=== PATIENT | female | born 1975 | race Caucasian/White ===

== ENCOUNTER 2017-07-18 14:12 | Emergency (ER) | payer MEDICAID ==
[2017-07-18 14:38] VITALS: BP 115/81; TEMP 98.5; O2SAT 98
--- NOTE | 2017-07-18 14:49 | ED.PDOC ---
History of Present Illness - General Chief Complaint: Problem Stated Complaint: Possible UTI Time Seen by Provider: 07/18/17 14:27 Source: patient, RN notes reviewed, Vital Signs reviewed Exam Limitations: no limitations - History of Present Illness Initial Comments: Patient presents to ER with c/o cloudy urine, urinary frequency and mild L flank pain. Feels similar to prior UTI's. + Urgency. + strong odor in AM. No vaginal discharge. Timing/Duration: yesterday Quality: moderate, stabbing Onset Location: suprapubic Radiation: left flank Activites at Onset: none Improving Factors: nothing Worsening Factors: nothing Associated Symptoms: abdominal pain, dysuria, urinary frequency Allergies/Adverse Reactions: Allergies Aspirin [From Talwin Compound] Adverse Reaction (Verified 07/18/17 14:38) Other Causes heart palpitations Pentazocine [From Talwin Compound] Adverse Reaction (Verified 07/18/17 14:38) Other Causes heart palpitations Home Medications: Ambulatory Orders Nitrofurantoin Monohydrate Mac [Macrobid] 100 mg PO BID #20 cap 07/18/17 Review of Systems - Review of Systems Constitutional: States: no symptoms reported Respiratory: States: no symptoms reported Cardiology: States: no symptoms reported Gastrointestinal/Abdominal: States: see HPI, abdominal pain. Denies: diarrhea, nausea, vomiting Genitourinary: States: see HPI, dysuria, frequency, pain, other - Urgency Musculoskeletal: States: back pain - L flank Skin: States: no symptoms reported Neurological: States: no symptoms reported All other Systems: No Change from Baseline Past Medical History (General) - Patient Medical History Hx Stroke: No Hx Asthma: Yes Hx Cardiac Disorders: Yes - hypercholesterolemia Hx Congestive Heart Failure: No Hx Diabetes: No Hx Renal Disease: - hx recurrent UTI's Hx MRSA: No Surgical History: other - Vaccination History Hx Influenza Vaccination: Yes - 2017 - Social History Hx Tobacco Use: No - Female History Patient is a Female of Child Bearing Age (10 -59 yrs old): No Family Medical History - Family History Mother Living Status: Still Living Hx Family Hypertension: Yes Hx Family;Other: Osteoarthitis, fibromyalgia Physical Exam - Physical Exam General Appearance: Alert, Comfortable, No apparent distress, Well Developed, Well Groomed, Well Hydrated, Well Nourished Cardiovascular/Respiratory: regular rate, rhythm, no M/R/G, normal breath sounds , no respiratory distress Gastrointestinal/Abdominal: normal bowel sounds, soft, no organomegaly, no pulsatile mass, tenderness - Mild suprapubic & LLQ tenderness w/o guarding or rebound Back Exam: CVA tenderness (L) - mild Extremity: normal range of motion, normal inspection Neurologic: alert, normal mood/affect, oriented x 3 Skin Exam: normal color, warm/dry Comments: Vital Signs 07/18/17 14:36 Temperature 98.5 F Pulse Rate [ 79 Right Radial] Respiratory 20 Rate Blood Pressure 115/81 [Right Arm] O2 Sat by Pulse 98 Oximetry Progress - Progress Progress: 07/18/17 14:58 Discussed normal urine results. Patient is concerned that she flushed everything out by drinking so much water today. Will send urine for culture and start Macrobid. She is agreeable with plan. - Results/Orders Results/Orders: Laboratory Tests 07/18/17 14:38 Urine Color Yellow Urine Appearance Clear Urine pH 7.0 Ur Specific [place] 1.010 Urine Protein Negative Urine Glucose (UA) Negative Urine Ketones Negative Urine Blood Negative Urine Nitrite Negative Urine Bilirubin Negative Urine Urobilinogen 0.2 Ur Leukocyte Esterase Negative Urine RBC 0 Urine WBC 0 Ur Epithelial Cells 0-1 Urine Bacteria 0 Urine Culture sent Departure - Departure Clinical Impression: Dysuria, Urinary frequency Time of Disposition: 15:00 Disposition: Discharge to Home or Self Care Condition: Good Departure Forms: ED Discharge - Pt. Copy, Patient Portal Self Enrollment Instructions: DI for Urinary Tract Infection (UTI) Diet: resume usual diet Activity: increase activity as tolerated Prescriptions: Nitrofurantoin Monohydrate Mac [Macrobid] 100 mg PO BID #20 cap Home Medications: Ambulatory Orders Nitrofurantoin Monohydrate Mac [Macrobid] 100 mg PO BID #20 cap 07/18/17
== END 2017-07-18 15:08 | disposition home or self-care (01) ==
LOC: ER 14:12
DX: R35.0 Frequency of micturition (principal); R30.0 Dysuria; E78.00 Pure hypercholesterolemia, unspecified; Z87.440 Personal history of urinary (tract) infections; Z88.8 Allergy status to other drugs, medicaments and biological substances

== ENCOUNTER → 2017-12-19 | Outpatient (CLI) | payer MEDICAID ==
--- NOTE | 2017-12-20 13:43 | CT ---
EXAM DESCRIPTION: CT ABDOMEN AND PELVIS WITHOUT AND WITH CONTRAST CLINICAL HISTORY: M54.9, N20.0 dorsalia, kidney stone COMPARISON: None Available. TECHNIQUE: CT of the abdomen and pelvis are performed prior to and during IV bolus administration of standard adult dose of nonionic iodinated contrast. Oral contrast media is administered as well. FINDINGS: The lung bases are clear of infiltrate. Heart size is normal. Liver is normal in size and parenchymal appearance on precontrast images. Tiny calculus in the left kidney is seen without evidence of obstructive uropathy. This measures 1 to 2 mm. On postcontrast images, there is normal enhancement of liver, spleen, pancreas and kidneys. Normal contrast opacification of upper abdominal vessels. Spleen, pancreas, and kidneys are unremarkable with no focal lesion. There is no lymphadenopathy, inflammation, or free fluid observed. In the pelvis, precontrast images show no evidence of distal ureteral or bladder stones. Pelvic calcifications are consistent with phleboliths. No inflammation around the cecum or sigmoid colon. Appendix is not definitely identified. No pelvic mass or adenopathy. Normal appearance of the ovaries. The uterus is not seen, evidently surgically absent. Postcontrast pelvic images show normal vascular enhancement. No abnormal bladder wall enhancement. Coronal and sagittal reformatted images confirm the findings. Degenerative changes are seen at L5-S1 disc level. IMPRESSION: Tiny calculus in the left kidney without obstructive uropathy. No acute pelvic process. This exam was performed according to our departmental dose-optimization program, which includes automated exposure control, adjustment of the mA and/or kV according to patient size and/or use of iterative reconstruction technique. Electronically signed by: Jese Horan MD 12/20/2017 1:41 PM CDT
== END ==
LOC: CT 09:43
PROVIDERS: ATTEND Urology
DX: M54.9 Dorsalgia, unspecified (principal); N20.0 Calculus of kidney

== ENCOUNTER → 2018-07-16 | Outpatient (CLI) | payer OTHER ==
--- NOTE | 2018-07-17 16:19 | RAD ---
EXAM: Cervical Spine,3 Views CLINICAL HISTORY: CERVICALGIA COMPARISON STUDY: None. FINDINGS: Vertebral bodies in normal alignment. Disc spaces are preserved. No prevertebral soft tissue swelling. No fracture identified. IMPRESSION: NEGATIVE CERVICAL SPINE. ADDITIONAL IMAGING CLINICALLY INDICATED. Electronically signed by: Christopher Marie MD 07/17/2018 4:18 PM [facility]
== END ==
LOC: RAD 14:49
PROVIDERS: ATTEND Nurse Practitioner Family
DX: M54.2 Cervicalgia (principal)

== ENCOUNTER → 2019-04-22 | Outpatient (CLI) | payer OTHER ==
--- NOTE | 2019-04-26 09:23 | MAM ---
EXAM DESCRIPTION: Breast,Right (accession [id number]), ultrasound. 3D Diagnostic, Bilateral (accession [id number]): Digital mammography. CLINICAL HISTORY: 43 yearsFemaleBREAST DISCHARGE right nipple. Usually dark color. Initially with spontaneous, now only with compression. No personal or family history history of breast cancer. Remote family history of ovarian cancer. Childbirth. Postmenopausal 5+ years HRT less than 5 years ago. Lifetime risk of developing breast cancer (Tyrer-Cuzick model)(%): 6.6. COMPARISON: None. TECHNIQUE: Bilateral LM, CC, and MLO projection full-field images, digital mammographic tomosynthesis technique. Bilateral 2-D digital full-field images. MLO and LM CAD not available . Transcutaneous scanning of the right breast utilizing pettit-scale and Doppler modes. Scanning performed by the motor vehicle escort driver and Dr. Black. FINDINGS: The breast parenchymal density pattern is: Scattered areas of fibroglandular density. No skin thickening or nipple retraction slightly increased retroareolar right breast density compared to the retroareolar left breast. No new focal, stellate mass or density, , and no suspicious microcalcifications bilaterally. Ultrasound: Scanning of the retroareolar right breast. Mixture of fibroglandular and fatty echotextures. A dilated duct is visible. No dominant solid mass or distinct cyst. No parenchymal edema or large calcifications. IMPRESSION: BI-RADS CATEGORY: 3 - PROBABLY BENIGN. Management: Short interval (6-month) diagnostic right breast mammogram and targeted right breast ultrasound of the region of interest.. The FINDINGS and the FOLLOW-UP plan were reviewed in person with the patient after the examination. Written communication explaining the IMPRESSION and FOLLOW-UP will be mailed to the patient and referring care provider. Electronically signed by: Collin Black MD 04/26/2019 9:21 AM CDT
== END ==
LOC: MAMMO 09:30
PROVIDERS: ATTEND General Practice
DX: N64.52 Nipple discharge (principal)
CPT/HCPCS: 76641; 77066; G0279

== ENCOUNTER → 2019-05-10 | Outpatient (CLI) | payer OTHER ==
--- NOTE | 2019-05-10 14:22 | RAD ---
EXAM DESCRIPTION: Wrist,Right 3 Views CLINICAL HISTORY: 43 years Female, SWELLING COMPARISON: None available. FINDINGS: The visualized bones are well-mineralized.No acute fracture or dislocation. The soft tissues appear grossly unremarkable. IMPRESSION: No radiographic abnormality is noted in the right wrist. Electronically signed by: Letty Dougherty MD 05/10/2019 2:21 PM CDT
== END ==
LOC: RAD 10:07
PROVIDERS: ATTEND Orthopaedic Surgery
DX: R22.31 Localized swelling, mass and lump, right upper limb (principal)

== ENCOUNTER 2019-05-27 17:17 | Emergency (ER) | payer OTHER ==
[2019-05-27] MEDS ORDERED: HYDROcodone 5MG/APAP 325MG 1 EA TAB PO ONE (18:27)
[2019-05-27] MEDS ORDERED: ONDANSETRON ODT 8 MG TAB SL SCH (18:30)
[2019-05-27] MEDS ORDERED: ONDANSETRON ODT 8 MG TAB SL STA (18:41)
--- NOTE | 2019-05-27 18:57 | ED.PDOC ---
History of Present Illness - General Chief Complaint: Trauma Stated Complaint: left shoulder pain; spasms Time Seen by Provider: 05/27/19 18:26 Source: patient, RN notes reviewed, Vital Signs reviewed, family - SO Additional Information: Pt presents s/p fall a few days ago with c/o left shoulder pain radiating down arm and intermittent numbness. Pt with reduced ROM. No f/c/n/v/d. Pain is worse with palpation or movement. Improved with rest. Pain is constant, stabbing and cramping and pt with muscle spasms in the left deltoid and left arm. - History of Present Illness Timing/Duration: other - 2-3 days ago. Severity: severe Improving Factors: rest Worsening Factors: movement Associated Symptoms: denies symptoms Allergies/Adverse Reactions: Allergies Aspirin [From Talwin Compound] Adverse Reaction (Verified 07/18/17 14:38) Other Causes heart palpitations Pentazocine [From Talwin Compound] Adverse Reaction (Verified 07/18/17 14:38) Other Causes heart palpitations Home Medications: Ambulatory Orders Nitrofurantoin Monohydrate Mac [Macrobid] 100 mg PO BID #20 cap 07/18/17 Cyclobenzaprine HCl [Flexeril] 10 mg PO Q8HRS #21 tab 05/27/19 Methylprednisolone [Medrol Dose Yoan] 4 mg PO DAILY 6 Days #21 tab 05/27/19 Tramadol HCl [Ultram] 50 mg PO Q6HRS #20 tab 05/27/19 Review of Systems - Review of Systems Constitutional: States: no symptoms reported EENTM: States: no symptoms reported Respiratory: States: no symptoms reported Cardiology: States: no symptoms reported Gastrointestinal/Abdominal: States: no symptoms reported Musculoskeletal: States: no symptoms reported, see HPI, joint pain, muscle pain Skin: States: no symptoms reported Neurological: States: no symptoms reported All other Systems: Reviewed and Negative Past Medical History (General) - Patient Medical History Hx Stroke: No Hx Asthma: Yes Hx Cardiac Disorders: Yes - hypercholesterolemia Hx Congestive Heart Failure: No Hx Diabetes: No Hx Renal Disease: - hx recurrent UTI's Hx MRSA: No Surgical History: other - Vaccination History Hx Influenza Vaccination: Yes - 2017 - Social History Hx Tobacco Use: No Family Medical History - Family History Mother Living Status: Still Living Hx Family Hypertension: Yes Hx Family;Other: Osteoarthitis, fibromyalgia Physical Exam - Physical Exam General Appearance: Alert, Anxious, Restless, Well Developed, Well Groomed, Well Hydrated, Well Nourished Eye Exam: bilateral normal Ears, Nose, Throat: hearing grossly normal, normal ENT inspection, normal pharynx Neck: full range of motion, supple, tender lateral - on the left paracervcial muscles and the trapezius Respiratory: chest non-tender, lungs clear, normal breath sounds, no respiratory distress, no accessory muscle use Cardiovascular/Chest: normal peripheral pulses, regular rate, rhythm, no edema, no gallop, no JVD, no murmur Peripheral Pulses: radial,right: 2+, radial,left: 2+ Gastrointestinal/Abdominal: normal bowel sounds, non tender, soft, no organomegaly, no pulsatile mass Back Exam: normal inspection, vertebral tenderness - just to the left of midline of the lower paracervical muscles. Extremity: other - pt with reduced active rom on the left. Full PROM on left. TTP along Deltoid muscle, also along the scaular border closet to the spine on the left. Neurologic: site coordinator II-XII nml as tested, no motor/sensory deficits, alert, normal mood/affect, oriented x 3 DTR: 2+: Biceps, left, Biceps, right Skin Exam: normal color, warm/dry Lymphatic: no adenopathy Progress - Progress Progress: 05/27/19 19:07 Pt's pain improved after pain meds. Xrays negative. Plan d/c home. D/w pt and she voices understanding and agreement with the plan of care. - Results/Orders Results/Orders: EXAM: XR Left Shoulder Complete, 2 or More Views CLINICAL HISTORY: fall TECHNIQUE: Two or more views of the left shoulder. COMPARISON: No relevant prior studies available. FINDINGS: Limitations: None. Bones/joints: Unremarkable. No acute fracture. No dislocation. Soft tissues: Unremarkable. IMPRESSION: No acute findings in the left shoulder. Electronically signed by: Elizabeth Hawk MD 05/27/2019 6:55 PM Departure - Departure Clinical Impression: Contusion, shoulder /upper arm, Cervical radiculopathy Strain of neck muscle Qualifiers: Encounter type: initial encounter Qualified Code(s): S16.1XXA - Strain of muscle, fascia and tendon at neck level, initial encounter Time of Disposition: 19:16 Disposition: Discharge to Home or Self Care Condition: Good Departure Forms: ED Discharge - Pt. Copy, Patient Portal Self Enrollment Instructions: DI for Trauma, Radiculopathy (DC), Contusion (DC), Shoulder Sprain (DC) Referrals: Geovanny Valiente MD [Primary Care Provider] - 1-2 Weeks Prescriptions: Tramadol HCl [Ultram] 50 mg PO Q6HRS #20 tab Cyclobenzaprine HCl [Flexeril] 10 mg PO Q8HRS #21 tab Methylprednisolone [Medrol Dose Yoan] 4 mg PO DAILY 6 Days #21 tab Home Medications: Ambulatory Orders Nitrofurantoin Monohydrate Mac [Macrobid] 100 mg PO BID #20 cap 07/18/17 Cyclobenzaprine HCl [Flexeril] 10 mg PO Q8HRS #21 tab 05/27/19 Methylprednisolone [Medrol Dose Yoan] 4 mg PO DAILY 6 Days #21 tab 05/27/19 Tramadol HCl [Ultram] 50 mg PO Q6HRS #20 tab 05/27/19 Additional Instructions: Be sure to perform the shoulder stretching exercised you were showed 5-6 times/day.
[2019-05-27 19:44] VITALS: BP 133/82; TEMP 97; O2SAT 95
== END 2019-05-27 19:35 | disposition home or self-care (01) ==
LOC: ER 17:17
DX: S40.012A Contusion of left shoulder, initial encounter (principal); S16.1XXA Strain of muscle, fascia and tendon at neck level, initial encounter; M54.12 Radiculopathy, cervical region; J45.909 Unspecified asthma, uncomplicated; E78.00 Pure hypercholesterolemia, unspecified; Z79.899 Other long term (current) drug therapy; Z88.6 Allergy status to analgesic agent; Z88.8 Allergy status to other drugs, medicaments and biological substances; W19.XXXA Unspecified fall, initial encounter; Y92.9 Unspecified place or not applicable

== ENCOUNTER 2019-08-04 17:08 | Emergency (ER) | payer OTHER ==
[2019-08-04 17:21] VITALS: BP 145/88; TEMP 96.5; O2SAT 100
[2019-08-04] MEDS ORDERED: NAPROXEN 250 MG TAB PO ONE (17:35)
--- NOTE | 2019-08-04 17:37 | ED.PDOC ---
History of Present Illness - General Chief Complaint: Lower Extremity Injury Stated Complaint: right foot pain Time Seen by Provider: 08/04/19 17:34 Source: patient Exam Limitations: no limitations - History of Present Illness Initial Comments: 44 yo F who presents for R heel pain onset while running [employer] when she heard a pop. States she has not been able to walk since 2/2 pain. Pt did not fall, denies pain or injury elsewhere. Allergies/Adverse Reactions: Allergies Aspirin [From Talwin Compound] Adverse Reaction (Verified 07/18/17 14:38) Other Causes heart palpitations Pentazocine [From Talwin Compound] Adverse Reaction (Verified 07/18/17 14:38) Other Causes heart palpitations Home Medications: Ambulatory Orders Nitrofurantoin Monohydrate Mac [Macrobid] 100 mg PO BID #20 cap 07/18/17 Cyclobenzaprine HCl [Flexeril] 10 mg PO Q8HRS #21 tab 05/27/19 Methylprednisolone [Medrol Dose Yoan] 4 mg PO DAILY 6 Days #21 tab 05/27/19 Tramadol HCl [Ultram] 50 mg PO Q6HRS #20 tab 05/27/19 Review of Systems - Review of Systems Constitutional: States: no symptoms reported Musculoskeletal: States: other - R heel pain. Denies: joint swelling Skin: Denies: change in color, lesions Neurological: Denies: numbness, weakness Past Medical History (General) - Patient Medical History Hx Stroke: No Hx Asthma: Yes Hx Cardiac Disorders: Yes - hypercholesterolemia Hx Congestive Heart Failure: No Hx Diabetes: No Hx Renal Disease: - hx recurrent UTI's Hx MRSA: No Surgical History: Hysterectomy - Vaccination History Hx Influenza Vaccination: Yes - Social History Hx Tobacco Use: No Family Medical History - Family History Mother Living Status: Still Living Hx Family Hypertension: Yes Hx Family;Other: Osteoarthitis, fibromyalgia Physical Exam - Physical Exam General Appearance: Alert, Comfortable, No apparent distress, Well Developed, Well Nourished Foot: other - TTP to R heel. Full ROM of all extremities without deformity or swelling. No tenderness otherwise. Neurovascularly intact. 2+ distal pulses. Cap refill <2 seconds. Achilles intact. Progress - Progress Progress: I have explained and reviewed all results with the pt. Placed in 3D boot, RICE instructions reviewed, NSAIDs for pain. I explained that emergent conditions may arise and to return to the ER for new, worsening, or any persistent conditions. I've explained the importance of f/u for recheck. All questions and concerns addressed at this time. Pt understands and agrees with plan. Pt well appearing, NAD, is stable for discharge. Tania Mtz MD Emergency Medicine Physician Billing Number [id number] - Results/Orders Results/Orders: R foot XR: EXAM: Foot,Right 3 Views CLINICAL INDICATION: 44-year-old female with pain. TECHNIQUE: Three views RIGHT foot were obtained in AP, lateral and oblique projections COMPARISON: None. FINDINGS: There is no fracture or dislocation. The joint spaces are preserved. No soft tissue abnormalities are seen. IMPRESSION: No acute radiographic abnormality. Electronically signed by: Chiqui Meyer MD 08/04/2019 5:[address] SCIENTIST Departure - Departure Clinical Impression: Acute pain of right foot Time of Disposition: 17:53 Disposition: Discharge to Home or Self Care Health Concerns: condition: stable Departure Forms: ED Discharge - Pt. Copy, Patient Portal Self Enrollment Instructions: Foot Sprain (DC) Referrals: Geovanny Valiente MD [Primary Care Provider] - 1 Week Cristino Howell MD [Active Staff] - 1 Week Home Medications: Ambulatory Orders Nitrofurantoin Monohydrate Mac [Macrobid] 100 mg PO BID #20 cap 07/18/17 Cyclobenzaprine HCl [Flexeril] 10 mg PO Q8HRS #21 tab 05/27/19 Methylprednisolone [Medrol Dose Yoan] 4 mg PO DAILY 6 Days #21 tab 05/27/19 Tramadol HCl [Ultram] 50 mg PO Q6HRS #20 tab 05/27/19 Additional Instructions: Follow up: [facility] As needed, if symptoms worsen
--- NOTE | 2019-08-04 17:44 | RAD ---
EXAM: Foot,Right 3 Views CLINICAL INDICATION: 44-year-old female with pain. TECHNIQUE: Three views RIGHT foot were obtained in AP, lateral and oblique projections COMPARISON: None. FINDINGS: There is no fracture or dislocation. The joint spaces are preserved. No soft tissue abnormalities are seen. IMPRESSION: No acute radiographic abnormality. Electronically signed by: Chiqui Meyer MD 08/04/2019 5:43 PM [employer]
[2019-08-04] MEDS ORDERED: IBUPROFEN 200 MG TAB PO ONE (17:46)
== END 2019-08-04 18:12 | disposition home or self-care (01) ==
LOC: ER 17:08
DX: M79.671 Pain in right foot (principal); J45.909 Unspecified asthma, uncomplicated; E78.00 Pure hypercholesterolemia, unspecified; Z79.899 Other long term (current) drug therapy; Z88.6 Allergy status to analgesic agent; Z88.8 Allergy status to other drugs, medicaments and biological substances

== ENCOUNTER → 2019-08-20 | Outpatient (CLI) | payer OTHER ==
--- NOTE | 2019-08-21 13:54 | US ---
US THYROID CLINICAL STATEMENT: ENLARGED THYROID. Both lobes are enlarged and patient has difficulty swallowing. No prior thyroid surgery or therapy. COMPARISON: None TECHNIQUE: Transcutaneous scanning, grayscale and Doppler modes. FINDINGS: Size right thyroid lobe: 5.7 x 2.1 x 2.0 cm Size left thyroid lobe: 5.4 x 2.4 x 2.0 cm Size isthmus: 0.6 cm Estimated total number of nodules greater than or equal to 1 cm: 4. Both glands are heterogeneous. Nodule 1: Size: 2.3 x 2.2 x 1.5 cm Location: Left Lower Composition: solid or almost completely solid: 2 points. Minimally vascular. Echogenicity: hypoechoic: 2 points Shape: wider than tall: 0 points Margins: smooth: 0 points Echogenic foci: none: 0 points ACR Total Points: 4; ACR TI-RADS risk category: TR4 - moderately suspicious nodule. Nodule 2: Size: 1.6 x 1.6 x 1.3 cm Location: Right Lower Composition: solid or almost completely solid: 2 points. Minimally vascular. Echogenicity: hypoechoic: 2 points Shape: wider than tall: 0 points Margins: smooth: 0 points Echogenic foci: none: 0 points ACR Total Points: 4; ACR TI-RADS risk category: TR4 - moderately suspicious nodule. Nodule 3: Size: 1.3 x 1.2 x 0.5 cm Location: Left Mid Composition: solid or almost completely solid: 2 points. Minimally vascular. Echogenicity: hypoechoic: 2 points Shape: wider than tall: 0 points Margins: smooth: 0 points Echogenic foci: none: 0 points ACR Total Points: 4; ACR TI-RADS risk category: TR4 - moderately suspicious nodule. Nodule 4: Size: 1.0 x 1.0 x 0.9 cm Location: Right Mid Composition: solid or almost completely solid: 2 points. Minimally vascular. Echogenicity: hyperechoic: 1 point Shape: wider than tall: 0 points Margins: smooth: 0 points Echogenic foci: none: 0 points ACR Total Points: 3; ACR TI-RADS risk category: TR3 - mildly suspicious nodule. The soft tissue around the thyroid gland shows no dominant solid mass or distinct cyst. No large calcifications. IMPRESSION: 1. Nodule 1: ACR TI-RADS 2017 Category TR4. Recommend: Ultrasound-guided fine needle aspiration. Recommendations based upon [facility] Best Practice recommendations and ACR TI-RADS 2017 guidelines. Please see below*. 2. Nodule 2: ACR TI-RADS 2017 Category TR4. Recommend: Ultrasound-guided fine needle aspiration 3. Nodule 3: ACR TI-RADS 2017 Category TR4. Recommend: Follow-up ultrasound in 1 year. 4. Nodule 4: ACR TI-RADS 2017 Category TR3. Recommend: No further follow-up. Soft tissue around the thyroid gland is unremarkable. *ACR TI-RADS 2017 Recommendations for imaging follow-up of nodules: TR1: No FNA or follow up TR2: No FNA or follow up TR3: FNA if >/= 2.5 cm, follow up if 1.5 - 2.4 cm in 1, 3, and 5 years TR4: FNA if >/= 1.5 cm, follow up if 1.0 - 1.4 cm in 1, 2, 3, and 5 years TR5: FNA if >/= 1.0 cm, follow up if 0.5 - 0.9 cm every year for 5 years ACR TI-RADS recommends that no more than two nodules with the highest ACR TI-RADS total point should be biopsied and no more than four nodules should be followed. These recommendations do not apply to patients with increased risk for thyroid cancer or patients with symptomatic thyroid disease. Electronically signed by: Collin Black MD 08/21/2019 1:52 PM [facility] [employer]
== END ==
LOC: US 07:41
PROVIDERS: ATTEND Internal Medicine Endocrinology, Diabetes & Metabolism
DX: E05.90 Thyrotoxicosis, unspecified without thyrotoxic crisis or storm (principal); E04.9 Nontoxic goiter, unspecified; N91.2 Amenorrhea, unspecified; R63.5 Abnormal weight gain; Z83.49 Family history of other endocrine, nutritional and metabolic diseases; Z79.52 Long term (current) use of systemic steroids

== ENCOUNTER → 2019-09-17 | Outpatient (CLI) | payer OTHER ==
--- NOTE | 2019-09-17 12:09 | RAD ---
EXAM DESCRIPTION: Foot,Right 3 Views CLINICAL HISTORY: 44 years Female, PAIN IN RIGHT FOOT COMPARISON: None. Findings: Three radiographs Location: Right foot No acute fracture or dislocation. Joint spaces are maintained. Lisfranc alignment is maintained. No focal soft tissue swelling. IMPRESSION: No evidence of acute process in the right foot. Electronically signed by: Kranthi Chung MD 09/17/2019 12:07 PM [facility]
== END ==
LOC: RAD 07:48
PROVIDERS: ATTEND Orthopaedic Surgery
DX: M79.671 Pain in right foot (principal)

== ENCOUNTER → 2019-09-21 | Outpatient (CLI) | payer OTHER ==
--- NOTE | 2019-09-23 09:09 | NM ---
EXAM DESCRIPTION: Thyroid Uptake Scan CLINICAL HISTORY: HYPERTHYROIDISM. Abnormal bilateral thyroid nodules on ultrasound, recommended for biopsy. COMPARISON: Ultrasound thyroid gland August 2019. TECHNIQUE: Patient was given 240 uCi also of iodine 123 radiopharmaceutical orally. Percentage of activity in the thyroid gland was measured at 5 hr. Activity was again measured at 24 hr. Repeat anterior and oblique gamma camera images also. FINDINGS: 5 hour uptake in the thyroid gland bilaterally was 3.4%. 24-hour uptake in the thyroid gland bilaterally with 5.8%. These values are abnormally low for both periods of time. On the left anterior oblique image, the uptake in the lower pole of the left lobe is decreased, at the location of an abnormal nodule. This suggests that the abnormal nodule may be "cold" (decreased uptake). The right anterior oblique image shows decreased uptake in the right lower lobe which corresponds to the location of an abnormal nodule. This is also suggesting that the nodule may have less uptake than the remainder of the lobe. IMPRESSION: 1. Abnormally low uptake in the bilateral thyroid gland at 5 hours and 24 hours, which is more consistent with hypofunctioning gland or hypothyroidism. 2. Cold nodules in multinodular goiter have a 5% risk of malignancy. Solitary cold nodules: 15 % risk of malignancy. 3. Findings on this study does not change the biopsy recommendations from the thyroid ultrasound. Electronically signed by: Collin Black MD 09/23/2019 9:08 AM [facility]
== END ==
LOC: NM 08:00
PROVIDERS: ATTEND Internal Medicine Endocrinology, Diabetes & Metabolism
DX: E05.90 Thyrotoxicosis, unspecified without thyrotoxic crisis or storm (principal); E04.2 Nontoxic multinodular goiter; R63.5 Abnormal weight gain; Z79.52 Long term (current) use of systemic steroids; Z83.49 Family history of other endocrine, nutritional and metabolic diseases
CPT/HCPCS: 78012; A9516

== ENCOUNTER → 2020-01-31 | Outpatient (CLI) | payer OTHER ==
--- NOTE | 2020-02-01 12:58 | MAM ---
EXAM DESCRIPTION: 3D Diagnostic, Bilateral (accession [id number]), Breast,Right (accession [id number]): Ultrasound CLINICAL HISTORY: 44 yearsFemalediagnostic screening 6 month follow up. Dark right breast nipple discharge. Dilated duct right breast retroareolar tissue. No personal history of breast cancer. Family history of ovarian cancer. Menarche age 17. Childbirth age 19. Menopause age 38. HRT less than 5 years ago. Lifetime risk of developing breast cancer (Tyrer-Cuzick model)(%): 16.3. COMPARISON: Bilateral diagnostic digital breast tomosynthesis and right breast ultrasound April 2019. TECHNIQUE: Bilateral LM, CC, and MLO projection full-field images, LM and CC spot compression upper outer quadrant right breast: digital tomosynthesis technique. Bilateral 2-D digital full-field images: LM, CC, and MLO projections. 2-D spot compression, LM and CC projections, upper inner quadrant right breast. CAD available for 2-D images.. Transcutaneous scanning of the right breast utilizing pettit-scale and Doppler modes. Scanning performed by the director of food and nutrition and Dr. Black. FINDINGS: The breast parenchymal density pattern is: Scattered areas of fibroglandular density. No skin thickening or nipple retraction lobulated mass approximately 1 cm greatest diameter in the middle third of the upper inner quadrant of the right breast at the 10:00 to 11:00 position, approximately 6 cm from the nipple. No associated microcalcifications. Not as well visualized on the prior study. Bilateral solitary microcalcifications. Small left axillary lymph node. No prominent retroareolar ducts. No new focal, stellate mass or density, focal asymmetry , and no suspicious microcalcifications left breast. Ultrasound: Scanning 2:00 region of the right breast 6 cm from the nipple. Make sure of fatty tissues and fibroglandular tissues. Partially circumscribed heterogeneous echogenic and hypoechoic mass measuring 10.6 x 11.0 mm. Not vascular. Wider than tall orientation and mostly posterior acoustic enhancement. Not associated with a dominant solid mass or distinct cyst or fluid collections. No large calcifications. No overlying skin changes. No retroareolar dilated ducts on the right. IMPRESSION: Probably lymph node versus focal fibroglandular tissues. BI-RADS CATEGORY: 3 - PROBABLY BENIGN. RECOMMENDATIONS: FOLLOW-UP: Short interval (6-month) digital diagnostic right breast tomosynthesis and directed right breast ultrasound. The FINDINGS and the FOLLOW-UP plan were reviewed in person with the patient after the examination. Written communication explaining the IMPRESSION and FOLLOW-UP will be mailed to the patient and referring care provider. Electronically signed by: Collin Black MD 02/01/2020 12:56 PM CDT
== END ==
LOC: MAMMO 09:59
PROVIDERS: ATTEND General Practice
DX: R92.8 Other abnormal and inconclusive findings on diagnostic imaging of breast (principal)
CPT/HCPCS: 76641; 77066; G0279

== ENCOUNTER 2020-03-02 08:45 | Observation (INO) | payer OTHER ==
--- NOTE | 2020-03-02 09:16 | ED.PDOC ---
History of Present Illness - General Chief Complaint: Neuro Symptoms/Deficits Stated Complaint: face tingling Time Seen by Provider: 03/02/20 09:02 Source: patient, family Additional Information: 44yo F POD #3 from total thyroid removal by Dr. Joy in [place] presents with body numbness and tingling. Symptoms are moderate and constant. Symptoms are bilateral. She reports associated generalized weakness. No voice change or neck swelling. No speech change. She has been tolerating PO. No fever. No vision loss or double vision. No hx of CVA or TIA. No other reported issues. - History of Present Illness Timing/Duration: 24 hours Severity: moderate Allergies/Adverse Reactions: Allergies Aspirin [From Talwin Compound] Adverse Reaction (Verified 07/18/17 14:38) Other Causes heart palpitations Pentazocine [From Talwin Compound] Adverse Reaction (Verified 07/18/17 14:38) Other Causes heart palpitations Home Medications: Ambulatory Orders Nitrofurantoin Monohydrate Mac [Macrobid] 100 mg PO BID #20 cap 07/18/17 Cyclobenzaprine HCl [Flexeril] 10 mg PO Q8HRS #21 tab 05/27/19 Methylprednisolone [Medrol Dose Yoan] 4 mg PO DAILY 6 Days #21 tab 05/27/19 Tramadol HCl [Ultram] 50 mg PO Q6HRS #20 tab 05/27/19 Review of Systems - Review of Systems Constitutional: Denies: chills, fever EENTM: States: blurred vision. Denies: eye pain, double vision Respiratory: Denies: cough, short of breath, stridor, wheezing Cardiology: Denies: chest pain, edema, palpitations Gastrointestinal/Abdominal: Denies: abdominal pain, diarrhea, vomiting Genitourinary: States: no symptoms reported Musculoskeletal: Denies: back pain, joint pain, joint swelling, neck pain Skin: Denies: change in color, lesions Neurological: States: numbness, paresthesia, tingling. Denies: headache, seizure, weakness Endocrine: Denies: excessive sweating, intolerance to cold, increased urine Hematologic/Lymphatic: States: no symptoms reported Past Medical History (General) - Patient Medical History Hx Stroke: No Hx Asthma: Yes Hx Cardiac Disorders: Yes - hypercholesterolemia Hx Congestive Heart Failure: No Hx Diabetes: No Hx Renal Disease: - hx recurrent UTI's Hx MRSA: No Surgical History: Hysterectomy - Vaccination History Hx Influenza Vaccination: Yes - Social History Hx Tobacco Use: No Hx Alcohol Use: No - Activities of Daily Living Hospice Agency (if applicable):: None - Female History Patient is a Female of Child Bearing Age (10 -59 yrs old): No Family Medical History - Family History Mother Living Status: Still Living Hx Family Hypertension: Yes Hx Family;Other: Osteoarthitis, fibromyalgia Physical Exam - Physical Exam General Appearance: Alert, No apparent distress Eye Exam: bilateral normal Ears, Nose, Throat: normal ENT inspection, normal pharynx Neck: non-tender, supple, other - C/D/I surgical wound to anterior neck without hematoma, erythema or warmth. Respiratory: chest non-tender, lungs clear, normal breath sounds, no respiratory distress, other - No stridor Cardiovascular/Chest: normal peripheral pulses, regular rate, rhythm, no edema Peripheral Pulses: radial,right: 2+, radial,left: 2+ Gastrointestinal/Abdominal: normal bowel sounds, non tender, soft Back Exam: normal inspection, no vertebral tenderness Extremity: normal range of motion, non-tender, no pedal edema Neurologic: bryologist II-XII nml as tested, no motor/sensory deficits, alert, normal mood/affect, oriented x 3, other - Endorses tingling. Patient is sensate in all extremities. No tremor. Skin Exam: normal color, warm/dry Lymphatic: no adenopathy Progress - Progress Progress: DDX: Post op problem, hypocalcemia, hematoma, nerve injury, ACS, CVA, infection, lyte disorder, renal failure, anemia. Mayur Bentley MD #[id number] 03/02/20 11:03 Hypocalcemia. Discussed with Cecile (Hospitalist). Comfortable with bring the patient into [facility]. Requests we confirm with Dr. Joy. 03/02/20 11:05 Dr. Joy is comfortable with patient staying at [facility]. Pt updated and is comfor table with plan. - Results/Orders Results/Orders: 03/02/20 09:03 URINALYSIS Stat 03/02/20 09:04 CALCIUM,IONIZED Routine 03/02/20 09:08 CARDIAC ENZYME GROUP Stat 03/02/20 10:30 EKG STAT Laboratory Results - last 24 hr 03/02/20 03/02/20 03/02/20 09:08 09:08 09:08 WBC 8.4 RBC 4.35 Hgb 13.5 Hct 39.6 MCV 91.1 MCH 31.1 H MCHC 34.1 RDW 13.3 Plt Count 178 MPV 9.4 Absolute Neuts (auto) 4.00 Absolute Lymphs (auto) 3.20 Absolute Monos (auto) 1.00 H Absolute Eos (auto) 0.20 Absolute Basos (auto) 0.10 Neutrophils % 47.1 Lymphocytes % 38.3 Monocytes % 11.9 H Eosinophils % 2.0 Basophils % 0.7 Sodium 138 Potassium 3.2 L Chloride 96 L Carbon Dioxide 29 Anion Gap 16.2 BUN 17 Creatinine 0.84 BUN/Creatinine Ratio 20.2 H Random Glucose 84 Serum Osmolality 276.4 Calcium 6.7 L* Magnesium 1.6 L Total Bilirubin 0.5 AST 31 ALT 22 Alkaline Phosphatase 75 Creatine Kinase 322 H* CK-MB (CK-2) 1.7 Troponin I < 0.02 Serum Total Protein 7.2 Albumin 3.9 Globulin 3.3 Albumin/Globulin Ratio 1.2 TSH 1.06 Last Vital Signs Temp 97.9 F 03/02/20 09:45 Pulse 73 03/02/20 10:00 Resp 16 03/02/20 10:00 BP 105/76 03/02/20 10:00 Pulse Ox 98 03/02/20 10:00 - EKG/XRAY/CT EKG: Sinus - (8:55 AM) 87, nl axis, nl intervals., no ST T wave changes XRAY: chest - No acute findings. See formal read. CT: CT HEAD: No acute findings. See formal read. Departure - Departure Clinical Impression: Hypocalcemia, S/P thyroidectomy, Paresthesia Time of Disposition: 11:10 Disposition: Admit Patient Condition: Fair Departure Forms: ED Discharge - Pt. Copy, Patient Portal Self Enrollment Referrals: Geovanny Valiente MD [Primary Care Provider] - 1-2 Weeks Home Medications: Ambulatory Orders Nitrofurantoin Monohydrate Mac [Macrobid] 100 mg PO BID #20 cap 07/18/17 Cyclobenzaprine HCl [Flexeril] 10 mg PO Q8HRS #21 tab 05/27/19 Methylprednisolone [Medrol Dose Yoan] 4 mg PO DAILY 6 Days #21 tab 05/27/19 Tramadol HCl [Ultram] 50 mg PO Q6HRS #20 tab 05/27/19
[2020-03-02] MEDS ORDERED: CALCIUM GLUCONATE INJ 2 GM in SODIUM CHLORIDE 0.9% 100ML 100 ML IVPB ONE (09:48)
--- NOTE | 2020-03-02 09:54 | CT ---
EXAM DESCRIPTION: Head CLINICAL HISTORY: Numbness COMPARISON: None TECHNIQUE: Noncontrast transaxial CT images of the head are obtained from base to vertex. This exam was performed according to our departmental dose-optimization program, which includes automated exposure control, adjustment of the mA and/or kV according to patient size and/or use of iterative reconstruction technique. FINDINGS: The midline structures are not displaced. The sulci are age appropriate. The lateral, third, and fourth ventricles are normal in size, shape, and anatomic positioning. There is no evidence of mass, mass effect, hydrocephalus, or acute intracranial hemorrhage. No abnormal extra axial fluid collections are seen. Normal pettit-white differentiation is seen. The visualized bone windows show no depressed skull fracture or significant abnormality. The visualized paranasal sinuses and mastoid air cells are clear. The pituitary fossa is mildly enlarged with only a thin rim of pituitary tissue in the floor . IMPRESSION: 1. No acute abnormality is seen on noncontrast CT of the head. Electronically signed by: Archie Silverio MD 03/02/2020 9:53 AM CDT
[2020-03-02] MEDS: SODIUM CHLORIDE 0.9% 1000ML 1,000 ML IVS PRN ×2 (10:00→19:32)
[2020-03-02] MEDS ORDERED: SODIUM CHLORIDE 0.9% 1000ML 1,000 ML ONE (10:01)
--- NOTE | 2020-03-02 10:19 | RAD ---
EXAM DESCRIPTION: Chest,1 View CLINICAL HISTORY: Chest pain COMPARISON: None. IMPRESSION: Single AP portable upright view of the chest shows cardiac silhouette and pulmonary vasculature to be within normal limits. Lungs are normally aerated and clear. No obvious pleural effusion or pneumothorax is seen. Electronically signed by: Archie Silverio MD 03/02/2020 10:18 AM CDT
--- NOTE | 2020-03-02 11:53 | HP ---
SUPERVISING PHYSICIAN: Junior Dickerson MD CHIEF COMPLAINT: Facial tingling and numbness. HISTORY OF PRESENT ILLNESS: This is a 44-year-old female patient who came to the Emergency Room this morning due to tingling over her entire body with numbness in her face and around her mouth. She had a thyroidectomy on 02/28/20, and she has had no problems postoperatively until yesterday when some vague symptoms started with some tingling in her hands that worsened to the point this morning that it was all over with numbness in her face. Her symptoms were bilateral. There were no speech changes. Her initial vital signs in the Emergency Room showed temperature 97.9, heart rate 88, blood pressure 129/89, respiratory rate 18, O2 saturation 97% on room air. Lab studies were done and her CBC was basically unremarkable. Sodium 138, potassium 3.2, chloride 96, carbon dioxide 29, calcium 6.7, magnesium 1.6, creatinine kinase 322, CK-MB 1.7, troponin less than 0.02. TSH 1.06. Head CT shows no acute abnormality seen on head CT. Chest x-ray shows single AP portable upright view of the chest shows cardiac silhouette and pulmonary vasculature to be within normal limits. Lungs are normally aerated and clear. No obvious pleural effusion or pneumothorax. She was given some calcium gluconate 2 grams in the Emergency Room as well as a liter of fluids. I was called for hospital admission and I requested that Dr. Joy, her surgeon in [place], be contacted. I was informed that Dr. Joy was called and was okay with her admission here. The patient was placed in observation in the hospital. PAST MEDICAL HISTORY: 1. Hypertension. 2. Tachycardia. 3. Gastroesophageal reflux disease. 4. Unknown thyroid illness. PAST SURGICAL HISTORY: 1. Hysterectomy. 2. Abdominal surgery to remove cysts. 3. section x2. 4. Thyroidectomy. OUTPATIENT MEDICATIONS: Per the EMR and awaiting verification. ALLERGIES: ASPIRIN, PENTAZOCINE. SOCIAL HISTORY: She lives in [place]. She sees Dr. Valiente. She denies tobacco or illicit drug use. She does drink alcohol occasionally on a social basis. REVIEW OF SYSTEMS: GENERAL: Negative for chills, fever or weight changes. HEENT: Positive for some mild vision changes. Negative for ear pain or sore throat. RESPIRATORY: Negative for wheezing, coughing or shortness of breath. CARDIAC: Negative for chest pain, palpitations or tachycardia. GASTROINTESTINAL: Negative for nausea, vomiting, diarrhea. GENITOURINARY: Negative for hematuria, dysuria or polyuria. MUSCULOSKELETAL: Negative for arthralgias, myalgias. SKIN: Negative for lesions or rashes. NEUROLOGIC: Positive for numbness on her face and paresthesias and tingling over her entire body, especially on the face and the extremities. Negative for headache or seizures. PHYSICAL EXAMINATION: VITAL SIGNS: Temperature 97.9, heart rate 69, blood pressure 124/76, respiratory rate 16, O2 97% on 2 liters nasal cannula. GENERAL: This is a 44-year-old, obese female lying in her hospital bed. She is in no acute distress. HEENT: Normocephalic, atraumatic. Pupils are equal and reactive. Oropharynx is clear. NECK: Supple without mass. RESPIRATORY: Essentially clear to auscultation bilaterally. CHEST: There is equal rise and fall of the chest with inspiration and expiration. CARDIOVASCULAR: Regular rate and rhythm. GASTROINTESTINAL: Abdomen is soft, nondistended, nontender. Bowel sounds are positive. BACK: Deferred. EXTREMITIES: No cyanosis, clubbing or edema. NEUROLOGIC: Awake, alert and oriented times three. Cranial nerves II-XII are grossly intact as tested. She moves all extremities equally with equal strength. LABORATORY: Labs and films are as per history of present illness. IMPRESSION: 1. Hypocalcemia status post thyroidectomy on 02/28/[address] Joy in [place]. 2. Mild hypokalemia and hypomagnesemia. 3. Hypertension. 4. Gastroesophageal reflux disease. PLAN: We will place the patient in observation. I will recheck her labs this afternoon as well as in the morning. I have added a parathyroid hormone to her morning labs. I have given her some magnesium and potassium supplementation. Her home medications will be restarted once they are verified. I have also started her on a proton pump inhibitor for ulcer prophylaxis and we will hold off on Lovenox until maybe tomorrow as she may go home tomorrow or the next days. We will continue to monitor the patient closely and follow as needed. [facility][id number] [facility]
[2020-03-02] MEDS ORDERED: ONDANSETRON INJ 4 MG/2 ML VIAL IV PRN (12:34)
[2020-03-02] MEDS ORDERED: SODIUM CHLORIDE 0.9% (FLUSH) 10 ML SYG IV PRN (12:34)
[2020-03-02] MEDS ORDERED: ACETAMINOPHEN 325 MG TAB PO PRN (12:34)
[2020-03-02] MEDS ORDERED: traMADol HCL 50 MG TAB PO PRN (12:43)
[2020-03-02] MEDS: IV SET AND CAP CHANGE INJ INJ SCH (13:14)
[2020-03-02] MEDS ORDERED: MAGNESIUM SULFATE PREMIX 2GM 2 GM in PREMIX BAG 1 BAG IVPB ONE (14:14)
[2020-03-02] MEDS ORDERED: POTASSIUM CHLORIDE 20 MEQ TAB PO ONE (14:14)
[2020-03-02] MEDS: LEFLUNOMIDE 20 MG PO SCH (16:55)
[2020-03-02] MEDS: PREGABALIN 75 MG CAP PO SCH ×2 (16:56→20:34)
[2020-03-02] MEDS: CETIRIZINE HCL 10 MG TAB PO SCH (16:57)
[2020-03-02] MEDS: HYDROcodone 5MG/APAP 325MG 1 EA TAB PO PRN ×2 (17:01→20:53)
[2020-03-02] MEDS: MONTELUKAST 10 MG TAB PO SCH (17:05)
[2020-03-02] MEDS: tiZANidine 4 MG TAB PO PRN (18:27)
[2020-03-02] MEDS ORDERED: PREGABALIN 75 MG CAP ONE (19:23)
[2020-03-02] MEDS ORDERED: CALCIUM GLUCONATE INJ 1 GM in SODIUM CHLORIDE 0.9% 50ML 50 ML IVPB ONE (21:40)
[2020-03-02] MEDS: SODIUM CHLORIDE 0.9% (FLUSH) 10 ML SYG IV SCH (21:43)
[2020-03-02] MEDS ORDERED: CALCIUM GLUCONATE INJ 1 GM/10 ML VIAL ONE (21:51)
[2020-03-02] MEDS ORDERED: SODIUM CHLORIDE 0.9% 50ML 50 ML ONE (21:54)
[2020-03-03] MEDS: tiZANidine 4 MG TAB PO PRN ×2 (00:32→21:17)
[2020-03-03] MEDS: SODIUM CHLORIDE 0.9% 1000ML 1,000 ML IVS PRN ×2 (04:31→14:12)
[2020-03-03] MEDS: HYDROcodone 5MG/APAP 325MG 1 EA TAB PO PRN ×4 (04:33→19:08)
[2020-03-03] MEDS ORDERED: hydroCHLOROthiazide 12.5 MG CAP ONE (07:50)
[2020-03-03] MEDS ORDERED: CELECOXIB 100 MG CAP ONE (07:51)
[2020-03-03] MEDS ORDERED: FOLIC ACID 1 MG TAB ONE (07:51)
[2020-03-03] MEDS ORDERED: LISINOPRIL 10 MG TAB ONE (07:51)
[2020-03-03] MEDS: CELECOXIB 100 MG CAP PO SCH (08:22)
[2020-03-03] MEDS: FOLIC ACID 1 MG TAB PO SCH (08:22)
[2020-03-03] MEDS: CETIRIZINE HCL 10 MG TAB PO SCH (08:22)
[2020-03-03] MEDS: LISINOPRIL 10 MG TAB PO SCH (08:22)
[2020-03-03] MEDS: PREGABALIN 75 MG CAP PO SCH ×3 (08:23→21:16)
[2020-03-03] MEDS: hydroCHLOROthiazide 12.5 MG CAP PO SCH (08:23)
[2020-03-03] MEDS: MONTELUKAST 10 MG TAB PO SCH (08:23)
[2020-03-03] MEDS: SODIUM CHLORIDE 0.9% (FLUSH) 10 ML SYG IV SCH ×2 (08:31→21:18)
[2020-03-03] MEDS: LEFLUNOMIDE 20 MG PO SCH (08:53)
[2020-03-03] MEDS ORDERED: CALCIUM GLUCONATE INJ 2 GM in SODIUM CHLORIDE 0.9% 100ML 100 ML IVPB ONE ×3 (12:37→21:26)
[2020-03-03] MEDS ORDERED: CALCIUM CARBONATE (ANTACID) 500 MG CHEWABLE TAB PO PRN (12:38)
[2020-03-03] MEDS ORDERED: SODIUM CHLORIDE 0.9% 100ML 100 ML IVPB ONE ×2 (12:47→21:04)
[2020-03-03] MEDS ORDERED: CALCIUM GLUCONATE INJ 1 GM/10 ML VIAL ONE ×2 (12:47→21:02)
[2020-03-03] MEDS: CALCITRIOL 0.25 MCG CAP PO SCH ×2 (12:50→21:17)
[2020-03-04] MEDS: HYDROcodone 5MG/APAP 325MG 1 EA TAB PO PRN ×4 (01:50→18:13)
[2020-03-04] MEDS ORDERED: CALCIUM GLUCONATE INJ 2 GM in SODIUM CHLORIDE 0.9% 100ML 100 ML IVPB ONE ×2 (05:23→13:08)
[2020-03-04] MEDS ORDERED: CALCIUM GLUCONATE INJ 1 GM/10 ML VIAL ONE ×2 (05:27→13:19)
[2020-03-04] MEDS ORDERED: SODIUM CHLORIDE 0.9% 100ML 100 ML IVPB ONE (05:29)
[2020-03-04] MEDS ORDERED: SODIUM CHLORIDE 0.9% (FLUSH) 10 ML SYG IV PRN (08:26)
--- NOTE | 2020-03-04 08:34 | PN ---
SUPERVISING PHYSICIAN: Junior Dickerson MD DATE: 03-03-20 SUBJECTIVE: The patient is still having some tingling in her face but denies any actual carpal pedal spasms. I did talk with Dr. Joy about care on his patient, to give her calcium gluconate, her calciums levels off at 8.2 or so and go ahead and start her on Calcitrol or Tums for calcium replacement as well as calcium gluconate every 8 hours. The patient has not had any nausea or vomiting and no chest pain. There is an incision on the midline neck anterior that is clean and dry. OBJECTIVE: VITAL SIGNS: Temperature 98.2, pulse 93, blood pressure 133/74, respirations 16, oxygen saturation 98% on room air. GENERAL: Patient is resting comfortably, does not appear to be in any acute distress. She is alert. CHEST: Clear to auscultation bilaterally. HEART: Regular rate and rhythm. ABDOMEN: Obese, soft, non-tender, positive bowel sounds. EXTREMITIES: Without edema. NEUROLOGIC: She is alert and oriented x 3. LABORATORY: White count 8,200, no left shift. Hemoglobin and hematocrit stable. Electrolytes have normalized except for her calcium. BUN 19, creatinine 0.7, magnesium up at 1.8, calcium 6.7, albumin 3.2, ionized calcium pending. Parathyroid pending. Vitamin D pending. RADIOLOGY: No radiographic studies. ASSESSMENT: 1. Hypocalcemia status post thyroidectomy on 02/28/[address] Joy in [place]. 2. Mild hypokalemia and hypomagnesemia. 3. Hypertension. 4. Gastroesophageal reflux disease. PLAN: We will continue with calcium replacement in the form of calcium gluconate 2 grams every 8 hours and check calcium levels as appropriate. I have also put her on Tums, 4 tablets q.i.d. as well as Calcitrol 0.5 mcg b.i.d. Once her calcium is showing to be stable and she is not symptomatic, once her calcium level is around 8, she can be discharged home to continue with outpatient management. Until we can discharge her, will continue to follow and touch base with Dr. Joy, I do have her number. Until then, we will continue to monitor and treat as needed. [facility][id number] [facility]
[2020-03-04] MEDS: FOLIC ACID 1 MG TAB PO SCH (09:23)
[2020-03-04] MEDS: LISINOPRIL 10 MG TAB PO SCH (09:23)
[2020-03-04] MEDS: CETIRIZINE HCL 10 MG TAB PO SCH (09:23)
[2020-03-04] MEDS: CALCITRIOL 0.25 MCG CAP PO SCH ×2 (09:23→20:41)
[2020-03-04] MEDS: CELECOXIB 100 MG CAP PO SCH (09:23)
[2020-03-04] MEDS: hydroCHLOROthiazide 12.5 MG CAP PO SCH (09:23)
[2020-03-04] MEDS: PREGABALIN 75 MG CAP PO SCH ×3 (09:23→20:40)
[2020-03-04] MEDS: LEFLUNOMIDE 20 MG PO SCH (09:24)
[2020-03-04] MEDS: SODIUM CHLORIDE 0.9% (FLUSH) 10 ML SYG IV SCH ×2 (09:24→20:40)
[2020-03-04] MEDS: MONTELUKAST 10 MG TAB PO SCH (09:24)
[2020-03-04] MEDS ORDERED: SODIUM CHL 0.9% 100ML MINI-BAG 100 ML IVPB ONE (13:20)
--- NOTE | 2020-03-04 17:35 | PN ---
SUPERVISING PHYSICIAN: Junior Dickerson MD DATE: 03/04/20 SUBJECTIVE: The patient is no longer having any paresthesias or tingling. Her calcium does stay on the lower end but is improving with multiple doses of Calcitrol gluconate. She has no additional complaints. No nausea, no chest pain, no shortness of breath. OBJECTIVE: VITAL SIGNS: Temperature 98.1, pulse 89, blood pressure 148/89, respirations are 18, oxygen saturation 92 to 94% on room air. GENERAL: Patient is resting comfortably. HEENT: Incision to the anterior portion of the neck, clean and dry with Steri- Strip in place. No signs of infection. CHEST: Lungs sounds clear to auscultation bilaterally. HEART: Regular rate and rhythm. ABDOMEN: Soft, non-tender, positive bowel sounds. EXTREMITIES: Without edema. NEUROLOGIC: She is alert and oriented x 3. LABORATORY: Calcium showing improvement, last night 6.8 to 7.2 to 7.8 at lunch. Her vitamin D2 pending. Parathyroid pending, calcium pending. IMPRESSION: 1. Hypocalcemia status post thyroidectomy on 02/28/[address] Joy in [place]. 2. Mild hypokalemia and hypomagnesemia. 3. Hypertension. 4. Gastroesophageal reflux disease. PLAN: Will continue to follow her calcium every 8 hours address with infusion of calcium gluconate as needed to maintain her at least above 8. I anticipate her last dose tonight recheck should be close to 8 and will hold off on any additional calcium gluconate at that time and see if she stabilizes overnight as she is also on oral calcium in the form of Tums as well as Rocal. Once she is stabilized around 8 to 8.2, will discharge and continue with outpatient management. Until then, we will continue to monitor and treat as needed. #[id number] [facility]
[2020-03-04] MEDS: NYSTATIN POWDER 15GM BTTL TOP SCH (20:40)
[2020-03-04] MEDS: tiZANidine 4 MG TAB PO PRN (20:41)
[2020-03-05] MEDS: HYDROcodone 5MG/APAP 325MG 1 EA TAB PO PRN ×3 (02:04→11:56)
[2020-03-05] MEDS: LISINOPRIL 10 MG TAB PO SCH (09:25)
[2020-03-05] MEDS: FOLIC ACID 1 MG TAB PO SCH (09:25)
[2020-03-05] MEDS: PREGABALIN 75 MG CAP PO SCH (09:25)
[2020-03-05] MEDS: MONTELUKAST 10 MG TAB PO SCH (09:26)
[2020-03-05] MEDS: CALCITRIOL 0.25 MCG CAP PO SCH (09:26)
[2020-03-05] MEDS: hydroCHLOROthiazide 12.5 MG CAP PO SCH (09:26)
[2020-03-05] MEDS: CETIRIZINE HCL 10 MG TAB PO SCH (09:26)
[2020-03-05] MEDS: CELECOXIB 100 MG CAP PO SCH (09:26)
[2020-03-05] MEDS: SODIUM CHLORIDE 0.9% (FLUSH) 10 ML SYG IV SCH (09:32)
[2020-03-05] MEDS: NYSTATIN POWDER 15GM BTTL TOP SCH ×2 (09:32→13:27)
[2020-03-05] MEDS: LEFLUNOMIDE 20 MG PO SCH (09:33)
[2020-03-05 13:27] VITALS: BP 126/72; TEMP 98; O2SAT 99
[2020-03-05] MEDS: IV SET AND CAP CHANGE INJ INJ SCH (13:27)
--- NOTE | 2020-03-27 10:42 | DS ---
SUPERVISING PHYSICIAN: Junior Dickerson MD ADMISSION DIAGNOSIS: 1. Hypocalcemia status post thyroidectomy on 02/28/[address] Joy in [place]. 2. Mild hypokalemia and hypomagnesemia. 3. Hypertension. 4. Gastroesophageal reflux disease. DISCHARGE DIAGNOSIS: 1. Hypocalcemia status post thyroidectomy on 02/28/[address] Joy in [place], with calcium now normalized and stable. 2. Mild hypokalemia and hypomagnesemia, normalized. 3. Hypertension. 4. Gastroesophageal reflux disease. REASON FOR HOSPITALIZATION: This is a 44-year-old female patient who came to the Emergency Room this morning due to tingling over her entire body with numbness in her face and around her mouth. She had a thyroidectomy on 02/28/20, and she has had no problems postoperatively until yesterday when some vague symptoms started with some tingling in her hands that worsened to the point this morning that it was all over with numbness in her face. Her symptoms were bilateral. There were no speech changes. Her initial vital signs in the Emergency Room showed temperature 97.9, heart rate 88, blood pressure 129/89, respiratory rate 18, O2 saturation 97% on room air. Lab studies were done and her CBC was basically unremarkable. Sodium 138, potassium 3.2, chloride 96, carbon dioxide 29, calcium 6.7, magnesium 1.6, creatinine kinase 322, CK-MB 1.7, troponin less than 0.02. TSH 1.06. Head CT shows no acute abnormality seen on head CT. Chest x-ray shows single AP portable upright view of the chest shows cardiac silhouette and pulmonary vasculature to be within normal limits. Lungs are normally aerated and clear. No obvious pleural effusion or pneumothorax. She was given some calcium gluconate 2 grams in the Emergency Room as well as a liter of fluids. I was called for hospital admission and I requested that Dr. Joy, her surgeon in [place], be contacted. I was informed that Dr. Joy was called and was okay with her admission here. The patient was placed in observation in the hospital. LABORATORY: Last BMP prior to discharge showed normal electrolytes with BUN 19, creatinine 0.7, magnesium normalized to 1.8. Calcium after multiple doses of calcium gluconate was stable at 8.2. Final albumin was 3.5. Urinalysis within normal limits. RADIOLOGY: CT of the head showed no acute abnormalities seen on noncontrast CT of the head per radiologic interpretation. Chest x-ray in the Emergency Room prior to admission showed no obvious pleural effusion or pneumothorax. Lungs well aerated and clear per radiologic interpretation. EKG showed normal sinus rhythm. QT interval was 382. QTC 459. Rate was 87. No ST or T-wave changes noted. HOSPITAL COURSE: Ms. Gibbons was admitted for hypokalemia secondary to surgical intervention prior to hospitalization. She had some symptomatology related to the hypocalcemia, but with multiple doses of calcium gluconate starting on oral calcium as well as Rocaltrol, the patient showed normalization of her calcium levels. She was no longer having any symptomatology related to hypocalcemia. After discussion with her surgeon, Dr. Joy, after recommendations of treatment and stabilization of calcium, it was felt she was stabilized and clinical improved well enough to continue with outpatient management. PLAN: Ms. Gibbons was discharged to followup with Dr. Joy in 2 weeks as well as Dr. Valiente in 7 days. She was to take medications as instructed and return to the Emergency Room if she had any concerning symptoms. Normal diet as tolerated. Increase activity as tolerated. MEDICATIONS PRESCRIBED ON DISCHARGE: 1. Calcitrol 0.5 mcg twice daily, #14, no refills. 2. Calcium carbonate 4 tablets 4 times a day for at least 2 weeks and to to followup with Dr. Joy in regards to continuation of calcium supplementation. All other medications prior to hospitalization were continued. DISPOSITION: The patient was discharged home. CONDITION ON DISCHARGE: Stable and improving. #[id number] [facility]
== END 2020-03-05 14:38 | disposition home or self-care (01) ==
LOC: ER 08:45 → UNDOADMOB 11:52 → MS 11:52
PROVIDERS: ADMIT Nurse Practitioner Acute Care; ATTEND Nurse Practitioner Family
DX: E83.51 Hypocalcemia (principal); E89.0 Postprocedural hypothyroidism; E87.6 Hypokalemia; E83.42 Hypomagnesemia; I10 Essential (primary) hypertension; K21.9 Gastro-esophageal reflux disease without esophagitis; R20.2 Paresthesia of skin; R20.0 Anesthesia of skin; R53.1 Weakness; J45.909 Unspecified asthma, uncomplicated; E78.00 Pure hypercholesterolemia, unspecified; Z98.890 Other specified postprocedural states; Z79.1 Long term (current) use of non-steroidal anti-inflammatories (NSAID); Z79.899 Other long term (current) drug therapy; Z88.6 Allergy status to analgesic agent; Z87.440 Personal history of urinary (tract) infections; Z90.710 Acquired absence of both cervix and uterus
CPT/HCPCS: 96361 ×2; 96366 ×3; 96367; 96365; J7030 ×4; A4216 ×7; J3475; J7050 ×5; 80048 ×2; 82310 ×5; 82553; 80053; 82040 ×2; 36415 ×6; 81001; 85025 ×2; 82550; 83735 ×3; 84443; 84484; 82330; 82306; 82652; 71045; 70450; 94760 ×4; 99285; 93005; G0378

== ENCOUNTER 2020-03-06 10:39 | Emergency (ER) | payer OTHER ==
--- NOTE | 2020-03-06 11:04 | ED.PDOC ---
History of Present Illness - General Time Seen by Provider: 03/06/20 10:49 Source: patient, family - History of Present Illness Initial Comments: 44 F +pmh presents with mother to ED c/o continued generalized fatigue. Pt was discharged from the hospital yesterday after having persistently low calcium levels s/p thyroidectomy on 02/28/2020. Pt states today she is progressively getting more fatigued with associated generalized bodyaches. She endorses in termittent dyspnea, dry cough, and pleuritic CP (by pt description) that are unchanged and secondary to her chronic asthma. She denies alleviating/aggravating factors. She denies associated CP with exertion, headache, dizziness, n/v/d, f/c, and/or acute changes in bowels/urination. She has no other complaints at this time. She states she spoke with her ENT specialist Dr. Joy who requests that I call her when pt arrives to ED. Appropriate PPE of surgical mask, gown, gloves, and eye protection (if encounter >5 minutes) utilized with every patient encounter; in accordance with hospital policy. Ben Gonzales DO Emergency Medicine Physician [id number] Allergies/Adverse Reactions: Allergies Aspirin [From Talwin Compound] Adverse Reaction (Verified 03/06/20 11:02) Other Causes heart palpitations Pentazocine [From Talwin Compound] Adverse Reaction (Verified 03/06/20 11:02) Other Causes heart palpitations Home Medications: Ambulatory Orders Celecoxib [Celebrex] 200 mg PO AC 03/02/20 Folic Acid 1 mg PO DAILY 03/02/20 HYDROcodone 5MG/APAP 325MG [[place] 5/325] 1 ea PO Q4H PRN 03/02/20 Leflunomide 20 mg PO DAILY 03/02/20 Levocetirizine Dihydrochloride [Levocetirizine Dihydrochl] 5 mg PO DAILY 03/02/20 Lisinopril & Hydrochlorothiazi [Lisinopril/Hydrochlorothi 10-12.5 mg] 1 tab PO DAILY 03/02/20 Montelukast [Singulair] 10 mg PO DAILY 03/02/20 Pregabalin [Lyrica] 150 mg PO TID 03/02/20 tiZANidine [Zanaflex] 4 mg PO Q6H PRN 03/02/20 Calcitriol [Rocaltrol] 0.5 mcg PO BID #14 cap 03/05/20 Calcium Carbonate (Antacid) [Tums] 4 ea PO QID PRN chwtab 03/05/20 Review of Systems - Review of Systems Constitutional: States: other - generalized fatigue, decreased energy levels, generalized bodyaches. Denies: chills, fever EENTM: Denies: blurred vision, double vision, throat pain, throat swelling, mouth pain Respiratory: States: cough - chronic and secondary to asthma, unchanged per pt, short of breath - chronic and secondary to asthma, unchanged per pt. Denies: stridor Cardiology: States: chest pain - pleuritic by description, only with cough, denies currently. Denies: edema, palpitations, syncope Gastrointestinal/Abdominal: Denies: abdominal pain, constipation, diarrhea, nausea, vomiting Genitourinary: Denies: dysuria Musculoskeletal: States: other - + discomfort at anterior distal neck surgical incision, improving since time of surgery, no acute worsening of site pain/redness and no localized swelling. Denies: back pain, joint pain, joint swelling Skin: Denies: change in color, rash Neurological: States: other - denies dizziness. Denies: headache Past Medical History (General) - Patient Medical History Hx Seizures: No Hx Stroke: No Hx Asthma: Yes Hx of COPD: No Hx Cardiac Disorders: Yes - hypercholesterolemia Hx Congestive Heart Failure: No Hx Pacemaker: No Hx Hypertension: No Hx Diabetes: No Hx Renal Disease: - hx recurrent UTI's Hx MRSA: No - Vaccination History Hx Influenza Vaccination: Yes - Social History Hx Tobacco Use: No Hx Alcohol Use: No Hx Substance Use: No Hx Physical Abuse: No Hx Emotional Abuse: No Family Medical History - Family History Mother Living Status: Still Living Hx Family Hypertension: Yes Hx Family;Other: Osteoarthitis, fibromyalgia Physical Exam - Physical Exam General Appearance: Alert, Comfortable, No apparent distress, Other - Appears to feel fatigued Eye Exam: bilateral normal Ears, Nose, Throat: normal ENT inspection Neck: non-tender, full range of motion, supple, normal inspection, other - anterior distal surgical incision is healing well with no surrounding/extending erythema, induration, fluctuance, swelling, and/or crepitiance Respiratory: chest non-tender, lungs clear, normal breath sounds, no respiratory distress, no accessory muscle use, other - no coughing throughout examination, no coughing throughout entire ED course. Cardiovascular/Chest: normal peripheral pulses, regular rate, rhythm, no edema, no JVD, no murmur Gastrointestinal/Abdominal: normal bowel sounds, non tender, soft Extremity: non-tender, normal inspection Neurologic: alert, normal mood/affect, oriented x 3 Skin Exam: normal color, warm/dry, other - no rash Lymphatic: no adenopathy Progress - Progress Progress: Pt presents with normal post-op condition s/p thyroidectomy and persistent fatigue. I will evalute imaging, labs, provide appropriate pharmacotherapy, and continue to monitor/reassess. Dispo will depend on imaging and lab results along with overall course in ED; however, discharge home is expected with f/u, education, and possible rx. 1101 I have consulted with Dr. Mahendra Vera director of land acquisition for pt's ENT Dr. Palak Joy, and discussed pt's case in ED. He states checking thyroid function at this time will have no utility due to only being 1 week post-op but does suggest evaluation of pt's calcium. He recommends that based on results pt should follow up with already scheduled appointment with Dr. Joy tomorrow (03/06/2020) morning after discharge from the ED. I have rechecked pt on multiple occasions with family at bedside; including now at time of discharge. NADLEVI. I have discussed lab findings, imaging, findings, and the normal nature of her post-op condition. I have informed pt of her f/u with Dr. Joy already scheduled for tomorrow; pt denies knowing this. She now agrees to f/u at the scheduled appointment. I have discussed discharge home along with f/u, education, and instructed to continue prescribed medication adherence. Pt and family voice understanding, agree with plan, and all questions answered. - Results/Orders Results/Orders: Vital Signs - 24 hr 03/06/20 03/06/20 03/06/20 10:45 11:03 11:39 Temperature 97.4 F L Pulse Rate [ 105 H 105 H 99 H brachial] Respiratory 18 18 18 Rate Blood Pressure 133/84 113/75 [Left Arm] O2 Sat by Pulse 94 L 97 Oximetry 03/06/20 03/06/20 03/06/20 12:00 13:00 13:54 Temperature 97.2 F L Pulse Rate [ 101 H 104 H 80 brachial] Respiratory 18 18 18 Rate Blood Pressure 116/81 122/89 109/82 [Left Arm] O2 Sat by Pulse 98 95 95 Oximetry Laboratory Results - last 24 hr 03/06/20 03/06/20 11:05 11:05 WBC 8.9 RBC 4.67 Hgb 14.2 Hct 43.5 MCV 93.1 MCH 30.4 MCHC 32.6 RDW 13.0 Plt Count 262 MPV 11.5 H Neut % 49.8 Absolute Neuts (auto) Cancelled Absolute Lymphs (auto) 3.21 Absolute Monos (auto) 0.97 Absolute Eos (auto) Cancelled Absolute Basos (auto) Cancelled Neutrophils % Cancelled Lymphocytes % 36.0 Monocytes % 10.9 Eosinophils % Cancelled Basophils % Cancelled Absolute Neutrophils 4.44 Differential Comment Cancelled RBC Morphology Cancelled Sodium 139 Potassium 3.3 L Chloride 99 L Carbon Dioxide 27 Anion Gap 16.3 BUN 15 Creatinine 0.80 BUN/Creatinine Ratio 18.8 Random Glucose 128 H Serum Osmolality 280.0 Calcium 8.3 L Total Bilirubin 0.6 AST 28 ALT 25 Alkaline Phosphatase 81 Serum Total Protein 7.4 Albumin 4.1 Globulin 3.3 Albumin/Globulin Ratio 1.2 Ionized Calcium was a send out lab. EXAM DESCRIPTION: Soft tissue neck, 2 radiographs CLINICAL HISTORY: Shortness of breath FINDINGS/ IMPRESSION: No diagnostic abnormality of the nasopharynx or oropharynx. No prevertebral soft tissue swelling. Mild subglottic narrowing on the AP projection which can be seen with inflammation/edema. Consider further evaluation with CT as deemed clinically indicated No radiopaque foreign body Electronically signed by: Deejay Blandon MD 03/06/2020 11:37 AM CDT EXAM DESCRIPTION: Chest,1 View CLINICAL HISTORY: 44 years Female, SOB COMPARISON: March 02, 2020 FINDINGS: One view/radiograph Heart size and pulmonary vessels are within normal limits. There is no pneumothorax or pleural effusion. The lungs are clear bilaterally. The soft tissues are unremarkable. No acute osseous findings. IMPRESSION: No acute cardiopulmonary abnormality. Electronically signed by: Kranthi Chung MD 03/06/2020 11:35 AM CDT I have reviewed both imaging studies, there films, and official radiology reads. I agree with above findings. Departure - Departure Clinical Impression: S/P thyroidectomy, Hypocalcemia, History of asthma Time of Disposition: 13:09 Disposition: Discharge to Home or Self Care Condition: Excellent Departure Forms: ED Discharge - Pt. Copy, Patient Portal Self Enrollment Instructions: Thyroidectomy (DC), Hypocalcemia (DC) Diet: resume usual diet Referrals: Geovanny Valiente MD [Primary Care Provider] - 1-2 Weeks Palak Joy MD [Referring] - 03/07/20 (Keep already scheduled appointment on 03/07/2020; as discussed at bedside.) Home Medications: Ambulatory Orders Celecoxib [Celebrex] 200 mg PO AC 03/02/20 Folic Acid 1 mg PO DAILY 03/02/20 HYDROcodone 5MG/APAP 325MG [[place] 5/325] 1 ea PO Q4H PRN 03/02/20 Leflunomide 20 mg PO DAILY 03/02/20 Levocetirizine Dihydrochloride [Levocetirizine Dihydrochl] 5 mg PO DAILY 03/02/20 Lisinopril & Hydrochlorothiazi [Lisinopril/Hydrochlorothi 10-12.5 mg] 1 tab PO DAILY 03/02/20 Montelukast [Singulair] 10 mg PO DAILY 03/02/20 Pregabalin [Lyrica] 150 mg PO TID 03/02/20 tiZANidine [Zanaflex] 4 mg PO Q6H PRN 03/02/20 Calcitriol [Rocaltrol] 0.5 mcg PO BID #14 cap 03/05/20 Calcium Carbonate (Antacid) [Tums] 4 ea PO QID PRN chwtab 03/05/20
--- NOTE | 2020-03-06 11:36 | RAD ---
EXAM DESCRIPTION: Chest,1 View CLINICAL HISTORY: 44 years Female, SOB COMPARISON: March 02, 2020 FINDINGS: One view/radiograph Heart size and pulmonary vessels are within normal limits. There is no pneumothorax or pleural effusion. The lungs are clear bilaterally. The soft tissues are unremarkable. No acute osseous findings. IMPRESSION: No acute cardiopulmonary abnormality. Electronically signed by: Kranthi Chung MD 03/06/2020 11:35 AM CDT
--- NOTE | 2020-03-06 11:39 | RAD ---
EXAM DESCRIPTION: Soft tissue neck, 2 radiographs CLINICAL HISTORY: Shortness of breath FINDINGS/ IMPRESSION: No diagnostic abnormality of the nasopharynx or oropharynx. No prevertebral soft tissue swelling. Mild subglottic narrowing on the AP projection which can be seen with inflammation/edema. Consider further evaluation with CT as deemed clinically indicated No radiopaque foreign body Electronically signed by: Deejay Blandon MD 03/06/2020 11:37 AM CDT
[2020-03-06] MEDS ORDERED: CALCIUM CARBONATE-VITAMIN D 500 MG TAB PO SCH (13:30)
[2020-03-06 13:53] VITALS: O2SAT 95
[2020-03-06 13:55] VITALS: BP 109/82; TEMP 97.2
== END 2020-03-06 13:54 | disposition home or self-care (01) ==
LOC: ER 10:39
DX: E83.51 Hypocalcemia (principal); R53.83 Other fatigue; E78.00 Pure hypercholesterolemia, unspecified; J45.909 Unspecified asthma, uncomplicated; Z79.899 Other long term (current) drug therapy

== ENCOUNTER → 2020-03-20 | Outpatient (CLI) | payer OTHER ==
--- NOTE | 2020-03-20 14:00 | RAD ---
EXAM DESCRIPTION: Foot,Right 3 Views: CR/DR/XR CLINICAL HISTORY: 44 years Female PAIN IN RIGHT FOOT COMPARISON: 3 views right foot September 17. TECHNIQUE: 3 VIEWS AP. Lateral. Oblique. Right foot. FINDINGS: Normal bone density. Moderate hallux valgus. No fracture. Minimal narrowing with particular sclerosis talonavicular joint. Rudimentary plantar calcaneal spur. No abnormal radiodense objects in the soft tissues or joint spaces. IMPRESSION: Moderate right hallux valgus. Minimal arthrosis talonavicular joint. Electronically signed by: Collin Black MD 03/20/2020 1:58 PM CDT
== END ==
LOC: RAD 09:46
PROVIDERS: ATTEND Orthopaedic Surgery
DX: M20.11 Hallux valgus (acquired), right foot (principal); M19.072 Primary osteoarthritis, left ankle and foot

== ENCOUNTER → 2020-04-12 | Outpatient (CLI) | payer OTHER ==
--- NOTE | 2020-04-12 17:37 | MRI ---
EXAM DESCRIPTION: Lumbar Spine w/o Contrast CLINICAL HISTORY: LUMBAR RADICULOPATHY COMPARISON: None Available. TECHNIQUE: Multi plantar multi sequence non contrast imaging. FINDINGS: There is good alignment of the lumbar spine. There is no vertebral pathology. No extra spinous abnormality is detected. L1-2: the disc is well hydrated. There is no loss of height. There is no bulging. The facets are unremarkable with no significant hypertrophy. There is no stenosis or impingement. L2-3: Unremarkable. Facet joint arthritis is observed. L3-4: Unremarkable. Facet joint arthritis is observed. L4-5: Unremarkable. Facet joint arthritis is observed. L5-S1: The disc is desiccated. Loss of disc height is observed. A left-sided 3.2 mm disc bulge is evident. Endplate degenerative changes are observed. No neural foraminal disease of significance is detected. IMPRESSION: A 3.2 mm left-sided disc bulge is evident at the L5-S1 level and there are associated disc degenerative changes at this level. Electronically signed by: Orion Cleary MD 04/12/2020 4:40 PM CDT
== END ==
LOC: MRI 07:55
PROVIDERS: ATTEND General Practice
DX: M54.16 Radiculopathy, lumbar region (principal); M51.87 Other intervertebral disc disorders, lumbosacral region; M51.37 Other intervertebral disc degeneration, lumbosacral region

== ENCOUNTER → 2020-07-14 | Outpatient (CLI) | payer OTHER | LOC: LAB.O 13:57 | PROVIDERS: ATTEND Internal Medicine Endocrinology, Diabetes & Metabolism | DX: E05.90 Thyrotoxicosis, unspecified without thyrotoxic crisis or storm (principal); E55.9 Vitamin D deficiency, unspecified; E89.0 Postprocedural hypothyroidism ==

== ENCOUNTER → 2020-09-12 | Outpatient (CLI) | payer OTHER ==
--- NOTE | 2020-09-13 10:00 | US ---
EXAM DESCRIPTION: 3D Diagnostic, Right (accession [id number]), Digital Mammography. Breast,Right (accession [id number]): Ultrasound CLINICAL HISTORY: 45 yearsFemale six-month follow-up right breast mass. Small lumps at the top of the right breast. Dark fluid expressed from nipples. Remote family history of breast cancer. Menarche age 17. Childbirth age 19. Menopause age unknown. HRT 5 or more years ago. Lifetime risk of developing breast cancer (Tyrer-Cuzick model)(%): 6.5. COMPARISON: Bilateral diagnostic digital breast tomosynthesis with ultrasound right breast January 2020. TECHNIQUE: Right breast LM, CC, and MLO projection full-field images, digital tomosynthesis technique. Right breast 2-D digital full-field images: SHAILESH, CC, and MLO projections. CAD available for 2-D images.. Transcutaneous scanning of the right breast utilizing pettit-scale and Doppler modes. Scanning performed by the emt p ; observation by Dr. Black. FINDINGS: The breast parenchymal density pattern is: Heterogeneously dense breast tissue, which may obscure small masses. Partially circumscribed mass density again visible at the 1:30-2:00 position right breast 4.5 cm from the nipple. Stable size compared to the prior study. Solitary microcalcifications. No skin thickening or nipple retraction No new focal, stellate mass or density, focal asymmetry , and no suspicious microcalcifications right breast. Ultrasound: Scanning of the anterior half of the upper inner quadrant of the right breast. They show fatty and fibroglandular tissues. Spongiform-appearing mass oval shaped with mostly circumscribed margins and no vascularity. Dimensions are 9.4 x 11.5 x 5.5 mm. Stable size and appearance since the prior study. Possibly a degenerating fibroadenoma or lymph node or other rare benign tumor. IMPRESSION: BI-RADS CATEGORY: 3 - PROBABLY BENIGN. RECOMMENDATIONS: FOLLOW-UP: Short interval (6-month) diagnostic right breast digital tomosynthesis and targeted right breast ultrasound January 2021. Routine left breast digital tomosynthesis follow-up at the same visit.. The FINDINGS and the FOLLOW-UP plan were reviewed in person with the patient after the examination. Written communication explaining the IMPRESSION and FOLLOW-UP will be mailed to the patient and referring care provider. Electronically signed by: Collin Black MD 09/13/2020 9:59 AM [facility]
== END ==
LOC: MAMMO 11:13
PROVIDERS: ATTEND General Practice
DX: R92.8 Other abnormal and inconclusive findings on diagnostic imaging of breast (principal)
CPT/HCPCS: 76641; 77065; G0279

== ENCOUNTER 2020-09-29 10:21 | Emergency (ER) | payer OTHER ==
--- NOTE | 2020-09-29 10:50 | ED.PDOC ---
History of Present Illness - General Time Seen by Provider: 09/29/20 10:24 Source: patient, RN notes reviewed, Vital Signs reviewed, family Exam Limitations: no limitations - History of Present Illness Initial Comments: 45 yo F with three days of intermittent left sided chest pain, nausea, muscle aches, shortness of breath, headache. no fever, did have sore throat last night. no cough. no known sick contacts, but works at a convenience store. Had gastric band surgery back in April. Does have uncles with CAD in their 50s.CP pressure, does not radiate. last minutes. not brought on back activity. Timing/Duration: other - 3 days Severity: moderate Improving Factors: nothing Worsening Factors: nothing Associated Symptoms: chest pain, headaches, malaise, shortness of breath Allergies/Adverse Reactions: Allergies Aspirin [From Talwin Compound] Adverse Reaction (Verified 04/27/20 10:11) Other Causes heart palpitations Pentazocine [From [place]win Compound] Adverse Reaction (Verified 04/27/20 10:11) Other Causes heart palpitations Home Medications: Ambulatory Orders Celecoxib [Celebrex] 200 mg PO AC 03/02/20 Folic Acid 1 mg PO DAILY 03/02/20 HYDROcodone 5MG/APAP 325MG [[place] 5/325] 1 ea PO Q4H PRN 03/02/20 Leflunomide 20 mg PO DAILY 03/02/20 Levocetirizine Dihydrochloride [Levocetirizine Dihydrochl] 5 mg PO DAILY 03/02/20 Lisinopril & Hydrochlorothiazi [Lisinopril/Hydrochlorothi 10-12.5 mg] 1 tab PO DAILY 03/02/20 Montelukast [Singulair] 10 mg PO DAILY 03/02/20 Pregabalin [Lyrica] 150 mg PO TID 03/02/20 tiZANidine [Zanaflex] 4 mg PO Q6H PRN 03/02/20 Calcitriol [Rocaltrol] 0.5 mcg PO BID #14 cap 03/05/20 Calcium Carbonate (Antacid) [Tums] 4 ea PO QID PRN chwtab 03/05/20 Duloxetine HCl [Duloxetine Hydrochloride] 60 mg PO DAILY 04/24/20 Hyoscyamine Sulfate [Anaspaz] 0.125 mg PO PRN PRN 04/24/20 Levothyroxine Sodium [Levoxyl] DAILY 04/24/20 Ondansetron [Zuplenz] 4 mg PO PRN 04/24/20 Rosuvastatin Calcium [Ezallor Sprinkle] 10 mg PO DAILY 04/24/20 Tramadol HCl 50 mg PO DAILY 04/24/20 Triamterene & Hydrochlorothiaz [Triamterene/Hydrochloroth 37.5-25 mg] 0.5 tab PO DAILY #20 tab 04/27/20 Ondansetron HCl [Zofran] 4 mg PO TID PRN #15 tab 09/29/20 Review of Systems - Review of Systems Constitutional: States: malaise. Denies: chills, fever EENTM: States: throat pain. Denies: blurred vision, nose pain, nose congestion Respiratory: States: short of breath. Denies: cough Cardiology: States: chest pain. Denies: palpitations, syncope Gastrointestinal/Abdominal: States: constipation, nausea. Denies: abdominal pain, diarrhea, vomiting Genitourinary: Denies: dysuria Musculoskeletal: States: back pain, muscle pain Skin: Denies: rash Neurological: States: headache. Denies: numbness, paresthesia, weakness Endocrine: Denies: unexplained weight gain, unexplained weight loss Hematologic/Lymphatic: Denies: blood clots, easy bleeding, easy bruising Past Medical History (General) - Patient Medical History Hx Seizures: No Hx Stroke: No Hx Dementia: No Hx Asthma: Yes Hx of COPD: No Hx Cardiac Disorders: Yes - hypercholesterolemia Hx Congestive Heart Failure: No Hx Pacemaker: No Hx Hypertension: Yes Hx Thyroid Disease: Yes Hx Diabetes: Yes Hx Renal Disease: - hx recurrent UTI's Hx Cancer: No Hx of HIV: No Hx Hepatitis B: No Hx Hepatitis C: No Hx MRSA: No Hx Other PMH: Yes - RA - Vaccination History Hx Influenza Vaccination: Yes - Social History Hx Tobacco Use: Yes Hx Alcohol Use: No Hx Substance Use: No Hx Physical Abuse: No Hx Emotional Abuse: No - Female History Patient : No Family Medical History - Family History Mother Living Status: Still Living Hx Family Hypertension: Yes Hx Family;Other: Osteoarthitis, fibromyalgia Physical Exam - Physical Exam General Appearance: Alert, Comfortable, No apparent distress, Well Developed, Well Groomed, Well Hydrated, Well Nourished Eye Exam: bilateral normal Ears, Nose, Throat: hearing grossly normal Neck: non-tender, full range of motion, supple, normal inspection Respiratory: chest non-tender, lungs clear, normal breath sounds, no respiratory distress, no accessory muscle use Cardiovascular/Chest: normal peripheral pulses, regular rate, rhythm, no edema, no gallop, no JVD, no murmur Peripheral Pulses: radial,right: 2+, radial,left: 2+ Gastrointestinal/Abdominal: normal bowel sounds, non tender, soft, no organomegaly, no pulsatile mass Rectal Exam: deferred Back Exam: normal inspection, no CVA tenderness, no vertebral tenderness Extremity: normal range of motion, non-tender, normal inspection, no pedal edema, no calf tenderness, normal capillary refill Neurologic: reticle printer II-XII nml as tested, no motor/sensory deficits, alert, normal mood/affect, oriented x 3 Skin Exam: normal color, warm/dry Progress - Progress Progress: 09/29/20 10:52 partial ddx: COVID, influenza, PE, CAD, pneumonia 09/29/20 12:02 Cardiac score 2. 09/29/20 13:37 delay in dispo, pending troponin to result. Symptoms improved. nausea resolved with zofran. Given 1 NS bolus. 09/29/20 13:45 bedside US shows no stones in gallbladder, GBW 2mm, no fluid, CBD 3 mm, negative sonographic murphys. 09/29/20 14:18 patient can take nsaids including iburpofen without reaction, will give dose of toradol for pleurtic chest pain and body aches. The data reviewed when caring for this patient included: nurse notes, prior records, etc. The history and assessments from nurses notes were reviewed and considered, and the patient's home medication list was also reviewed and considered. My assessment and the results of testing completed here in the ED were discussed with the patient/family. All questions were answered, and they express understanding of my assessment and the plan. They have been instructed to return if their symptoms worsen, and have been asked to follow up with their primary care physician to recheck today's presenting complaint. return precautions given. I have reviewed medication, benefits, alternatives and side effects. Patient decided to proceed with medication.patient discharged home in stable condition. Thi Locke DO #[id number] - Results/Orders Results/Orders: 09/29/20 11:00 STREP A SCREEN CULTURE Stat 09/29/20 12:00 EKG STAT Laboratory Results WBC 9.7 K/mm3 (4.8-10.8) 09/29/20 10:55 RBC 4.44 M/mm3 (4.20-5.40) 09/29/20 10:55 Hgb 13.4 gm/dL (12.0-16.0) 09/29/20 10:55 Hct 40.3 % (36.0-47.0) 09/29/20 10:55 MCV 90.8 fl (81.0-99.0) 09/29/20 10:55 MCH 30.3 pg (27.0-31.0) 09/29/20 10:55 MCHC 33.4 g/dL (33.0-37.0) 09/29/20 10:55 RDW 13.6 % (11.5-14.5) 09/29/20 10:55 Plt Count 219 K/mm3 (130-400) 09/29/20 10:55 MPV 9.8 fl (7.40-10.4) 09/29/20 10:55 Absolute Neuts (auto) 6.00 K/uL (1.8-6.8) 09/29/20 10:55 Absolute Lymphs (auto) 2.80 K/uL (1.0-3.4) 09/29/20 10:55 Absolute Monos (auto) 0.80 K/uL (0.2-0.8) 09/29/20 10:55 Absolute Eos (auto) 0.10 K/uL (0.0-0.4) 09/29/20 10:55 Absolute Basos (auto) 0.00 K/uL (0.0-0.1) 09/29/20 10:55 Neutrophils % 62.0 % (42.0-78.0) 09/29/20 10:55 Lymphocytes % 28.4 % (20.0-50.0) 09/29/20 10:55 Monocytes % 8.4 % (2.0-9.0) 09/29/20 10:55 Eosinophils % 0.8 % (1.0-5.0) L 09/29/20 10:55 Basophils % 0.4 % (0.0-2.0) 09/29/20 10:55 PT 10.1 SECONDS (9.0-10.9) 09/29/20 10:55 INR 1.02 (0.9-1.15) 09/29/20 10:55 PTT (SP) 24.7 SECONDS (21.8-31.6) 09/29/20 10:55 D-Dimer, Quantitative < 131.0 ng/ml (131-400) L 09/29/20 10:55 Sodium 140 mmol/L (135-145) 09/29/20 10:55 Potassium 3.5 mmol/L (3.6-5.0) L 09/29/20 10:55 Chloride 100 mmol/L (101-111) L 09/29/20 10:55 Carbon Dioxide 30 mmol/L (21-31) 09/29/20 10:55 Anion Gap 13.5 (12-18) 09/29/20 10:55 BUN 22 mg/dL (7-18) H 09/29/20 10:55 Creatinine 1.05 mg/dL (0.6-1.3) 09/29/20 10:55 BUN/Creatinine Ratio 21.0 (10-20) H 09/29/20 10:55 Random Glucose 87 mg/dL (70-105) 09/29/20 10:55 Serum Osmolality 282.1 mOsm/L (275-295) 09/29/20 10:55 Calcium 7.6 mg/dL (8.4-10.2) L 09/29/20 10:55 Total Bilirubin 0.6 mg/dL (0.2-1.0) 09/29/20 10:55 AST 27 IU/L (10-42) 09/29/20 10:55 ALT 20 IU/L (10-60) 09/29/20 10:55 Alkaline Phosphatase 68 IU/L (42-121) 09/29/20 10:55 Troponin I < 0.02 ng/mL (0.01-0.05) 09/29/20 12:45 B-Natriuretic Peptide < 15.0 pg/ml (0-100) 09/29/20 10:55 Serum Total Protein 6.8 gm/dL (6.4-8.2) 09/29/20 10:55 Albumin 3.8 g/dl (3.2-5.5) 09/29/20 10:55 Globulin 3.0 gm/dL (2.3-3.5) 09/29/20 10:55 Albumin/Globulin Ratio 1.3 (1.1-1.9) 09/29/20 10:55 Lipase 22 U/L (22-51) 09/29/20 13:48 Urine Color Yellow (Yellow) 09/29/20 10:55 Urine Appearance Clear (Clear) 09/29/20 10:55 Urine pH 7.5 (4.5-7.8) 09/29/20 10:55 Ur Specific [place] 1.015 (1.005-1.030) 09/29/20 10:55 Urine Protein Negative mg/dL 09/29/20 10:55 Urine Glucose (UA) Negative mg/dL (Negative) 09/29/20 10:55 Urine Ketones Negative mg/dL (NEGATIVE) 09/29/20 10:55 Urine Blood Negative (Negative) 09/29/20 10:55 Urine Nitrite Negative 09/29/20 10:55 Urine Bilirubin Negative (NEGATIVE) 09/29/20 10:55 Urine Urobilinogen 0.2 mg/dL (0.2-1.0) 09/29/20 10:55 Ur Leukocyte Esterase Negative (Negative) 09/29/20 10:55 Urine RBC 0-1 /hpf 09/29/20 10:55 Urine WBC 0-1 /hpf 09/29/20 10:55 Ur Epithelial Cells 5-10 /hpf 09/29/20 10:55 Amorphous Sediment Trace 09/29/20 10:55 Urine Bacteria Rare 09/29/20 10:55 Urine HCG, Qual Negative (NEGATIVE) 09/29/20 10:55 Group A Strep Rapid Negative (NEGATIVE) 09/29/20 11:00 - EKG/XRAY/CT EKG: Sinus - hr87 Comments: NSR, normal intervals. no acute ischemia. XRAY: chest - atelectasis otherwise no acute cardiopulmonary pathology Departure - Departure Clinical Impression: Viral syndrome, Atelectasis, Hypokalemia Time of Disposition: 13:58 Disposition: Discharge to Home or Self Care Instructions: Cough in Adults, Pleuritic Chest Pain, Nausea and Vomiting, Adult (DC), Headache, Adult (DC), Viral Syndrome (DC) Diet: resume usual diet, other - increase high potassium foods. Activity: increase activity as tolerated Referrals: Geovanny Valiente MD [Primary Care Provider] - 1-2 Days Prescriptions: Ondansetron HCl [Zofran] 4 mg PO TID PRN #15 tab PRN Reason: Vomiting Home Medications: Ambulatory Orders Celecoxib [Celebrex] 200 mg PO AC 03/02/20 Folic Acid 1 mg PO DAILY 03/02/20 HYDROcodone 5MG/APAP 325MG [[place] 5/325] 1 ea PO Q4H PRN 03/02/20 Leflunomide 20 mg PO DAILY 03/02/20 Levocetirizine Dihydrochloride [Levocetirizine Dihydrochl] 5 mg PO DAILY 03/02/20 Lisinopril & Hydrochlorothiazi [Lisinopril/Hydrochlorothi 10-12.5 mg] 1 tab PO DAILY 03/02/20 Montelukast [Singulair] 10 mg PO DAILY 03/02/20 Pregabalin [Lyrica] 150 mg PO TID 03/02/20 tiZANidine [Zanaflex] 4 mg PO Q6H PRN 03/02/20 Calcitriol [Rocaltrol] 0.5 mcg PO BID #14 cap 03/05/20 Calcium Carbonate (Antacid) [Tums] 4 ea PO QID PRN chwtab 03/05/20 Duloxetine HCl [Duloxetine Hydrochloride] 60 mg PO DAILY 04/24/20 Hyoscyamine Sulfate [Anaspaz] 0.125 mg PO PRN PRN 04/24/20 Levothyroxine Sodium [Levoxyl] DAILY 04/24/20 Ondansetron [Zuplenz] 4 mg PO PRN 04/24/20 Rosuvastatin Calcium [Ezallor Sprinkle] 10 mg PO DAILY 04/24/20 Tramadol HCl 50 mg PO DAILY 04/24/20 Triamterene & Hydrochlorothiaz [Triamterene/Hydrochloroth 37.5-25 mg] 0.5 tab PO DAILY #20 tab 04/27/20 Ondansetron HCl [Zofran] 4 mg PO TID PRN #15 tab 09/29/20
[2020-09-29] MEDS ORDERED: ONDANSETRON INJ 4 MG/2 ML VIAL IV ONE (11:16)
[2020-09-29 11:23] VITALS: TEMP 97.6
[2020-09-29] MEDS ORDERED: SODIUM CHLORIDE 0.9% 1000ML 1,000 ML IVS ONE (12:02)
--- NOTE | 2020-09-29 13:09 | RAD ---
Study: Frontal and Lateral Radiographs of the Chest. Indication: cp Comparison: None Impression: Heart size normal. Mild bilateral basilar atelectasis, otherwise lungs clear. No acute osseous abnormality. Electronically signed by: Elvis Conde MD 09/29/2020 1:08 PM [facility]
[2020-09-29 14:02] VITALS: BP 114/74
[2020-09-29] MEDS ORDERED: KETOROLAC TROMETHAMINE INJ 30 MG/ML VIAL IV ONE (14:04)
[2020-09-29 14:27] VITALS: O2SAT 96
== END 2020-09-29 14:24 | disposition home or self-care (01) ==
LOC: ER 10:21
DX: B34.9 Viral infection, unspecified (principal); J98.11 Atelectasis; E87.6 Hypokalemia; E11.9 Type 2 diabetes mellitus without complications; E78.00 Pure hypercholesterolemia, unspecified; E07.9 Disorder of thyroid, unspecified; M06.9 Rheumatoid arthritis, unspecified; I10 Essential (primary) hypertension; J45.909 Unspecified asthma, uncomplicated; Z20.822 Contact with and (suspected) exposure to COVID-19; Z87.440 Personal history of urinary (tract) infections; Z87.891 Personal history of nicotine dependence; Z79.899 Other long term (current) drug therapy; Z88.6 Allergy status to analgesic agent; Z88.8 Allergy status to other drugs, medicaments and biological substances; Z98.84 Bariatric surgery status